=== PATIENT | female | born 1985 | race Caucasian/White ===

== ENCOUNTER 2018-12-19 19:56 | Outpatient (CLI) | payer SELFPAY | END 2018-12-19 19:57 | disposition critical access hospital (66) | LOC: EMS 19:56 | PROVIDERS: ATTEND Surgery | DX: R41.0 Disorientation, unspecified (principal) | CPT/HCPCS: A0425; A0429 ==

== ENCOUNTER 2018-12-19 20:22 | Emergency (ER) | payer SELFPAY ==
[2018-12-19] MEDS ORDERED: diazePAM 5 MG TABLET PO STA (20:36)
--- NOTE | 2018-12-19 20:42 | ED Physician Documentation ---
PD HPI MHE - Stated complaint Stated Complaint: CONFUSION/ANXIETY - Chief complaint Chief Complaint: General - History obtained from History obtained from: Patient - History of Present Illness Primary symptom: Psychosis, Anxiety Timing - onset: Unknown Pain level max: 0 Pain level now: 0 Severity Comments: Moderate Contributing factors: Family, Substance abuse - drugs Similar symptoms before: Diagnosis (Psychiatric problems) - Additional information Additional information: Patient called EMS regarding anxiety. Here gives limited history stating that she feels anxious and is having delusions. She will not give further detail. Review of Systems Unable to obtain: Uncooperative PD PAST MEDICAL HISTORY - Past Medical History Past Medical History: No - Past Surgical History Past Surgical History: No - Allergies Allergies/Adverse Reactions: Allergies Allergy/AdvReac Type Severity Reaction Status Date / Time Unable to Assess Allergy Verified 12/19/18 20:28 - Living Situation Living Situation: reports: Alone Living Arrangement: reports: At home - Social History Does the pt smoke?: No Smoking Status: Never smoker Does the pt drink ETOH?: No Substance Use and Type: Marijuana - Family History Family history: reports: Other (Reviewed and not pertinent) PD ED PE NORMAL - Vitals Vital signs reviewed: Yes - General General: Alert and oriented X 3, No acute distress - HEENT HEENT: PERRL - Neck Neck: Supple, no meningeal sign - Cardiac Cardiac: RRR, No murmur - Respiratory Respiratory: Clear bilaterally - Abdomen Abdomen: Normal bowel sounds, Soft, Non tender, Non distended - Derm Derm: Warm and dry - Extremities Extremities: No deformity - Neuro Neuro: Alert and oriented X 3 - Psych Psych: Other (Blunted affect, tearful ) Results - Vitals Vitals: Vital Signs - 24 hr 12/19/18 12/19/18 12/20/18 20:25 21:14 01:53 Temperature 36.7 C 36.7 C Heart Rate 94 88 88 Respiratory 16 16 18 Rate Blood Pressure 133/89 H 130/90 H 101/66 O2 Saturation 100 100 100 Oxygen O2 Source Room air - EKG (time done) 2026 Rate: Rate (enter#) (89) Rhythm: NSR [place]: Normal Intervals: Normal [place], QRS normal Ischemia: Normal ST segments. No: Q waves, T wave inversion - Labs Labs: Laboratory Tests 12/19/18 12/19/18 12/19/18 21:10 21:16 21:16 WBC 7.4 RBC 4.43 Hgb 13.5 Hct 39.7 MCV 89.6 MCH 30.6 MCHC 34.1 RDW 11.8 L Plt Count 250 MPV 8.5 Neut # (Auto) 4.1 Lymph # (Auto) 2.6 [place] # (Auto) 0.6 Eos # (Auto) 0.0 Baso # (Auto) 0.0 Absolute Nucleated RBC 0.00 Nucleated RBC % 0.1 Sodium 136 Potassium 3.5 Chloride 102 Carbon Dioxide 27 Anion Gap 7.0 BUN 9 Creatinine 0.6 Estimated GFR (MDRD) 117 Glucose 98 Calcium 9.2 Total Bilirubin 0.8 AST 30 ALT 25 Alkaline Phosphatase 37 L Total Protein 7.0 Albumin 4.5 Globulin 2.5 Albumin/Globulin Ratio 1.8 Lipase 22 TSH Urine Color YELLOW Urine Clarity CLEAR Urine pH 6.5 Ur Specific [place] 1.020 Urine Protein TRACE Urine Glucose (UA) NEGATIVE Urine Ketones 15 H Urine Occult Blood NEGATIVE Urine Nitrite NEGATIVE Urine Bilirubin NEGATIVE Urine Urobilinogen 0.2 (NORMAL) Ur Leukocyte Esterase NEGATIVE Ur Microscopic Review NOT INDICATED Urine Culture Comments NOT INDICATED Salicylates < 6.0 Urine Opiates Screen NEGATIVE Ur Oxycodone Screen NEGATIVE Urine Methadone Screen NEGATIVE Ur Propoxyphene Screen NEGATIVE Acetaminophen < 10 L Ur Barbiturates Screen NEGATIVE Ur Tricyclics Screen NEGATIVE Ur Phencyclidine Scrn NEGATIVE Ur Amphetamine Screen POSITIVE H U Methamphetamines Scrn NEGATIVE U Benzodiazepines Scrn NEGATIVE Urine Cocaine Screen NEGATIVE U Cannabinoids Screen POSITIVE H Ethyl Alcohol < 5.0 12/19/18 21:16 WBC RBC Hgb Hct MCV MCH MCHC RDW Plt Count MPV Neut # (Auto) Lymph # (Auto) [place] # (Auto) Eos # (Auto) Baso # (Auto) Absolute Nucleated RBC Nucleated RBC % Sodium Potassium Chloride Carbon Dioxide Anion Gap BUN Creatinine Estimated GFR (MDRD) Glucose Calcium Total Bilirubin AST ALT Alkaline Phosphatase Total Protein Albumin Globulin Albumin/Globulin Ratio Lipase TSH 1.04 Urine Color Urine Clarity Urine pH Ur Specific [place] Urine Protein Urine Glucose (UA) Urine Ketones Urine Occult Blood Urine Nitrite Urine Bilirubin Urine Urobilinogen Ur Leukocyte Esterase Ur Microscopic Review Urine Culture Comments Salicylates Urine Opiates Screen Ur Oxycodone Screen Urine Methadone Screen Ur Propoxyphene Screen Acetaminophen Ur Barbiturates Screen Ur Tricyclics Screen Ur Phencyclidine Scrn Ur Amphetamine Screen U Methamphetamines Scrn U Benzodiazepines Scrn Urine Cocaine Screen U Cannabinoids Screen Ethyl Alcohol PD MEDICAL DECISION MAKING - ED course Complexity details: reviewed results, re-evaluated patient, considered differential, d/w patient, d/w behavioral consultant ED course: 33-year-old female presented with concern for possible psychosis, suicidal or homicidal ideation. Patient evaluated by DCR who also interviewed family members and provided patient with intensive outpatient resources.At time of discharge patient denies any suicidal or homicidal. Patient encouraged to return anytime with worsening symptoms. Departure - Departure Disposition: 01 Home, Self Care Clinical Impression: Delusions Condition: Stable Comments: Follow-up with resources provided. Return with worsening symptoms.
[2018-12-19 21:31] LABS: BASOPHILS % (AUTO) 0.7 %; EOSINOPHILS % (AUTO) 0.6 %; HGB - HEMOGLOBIN 13.5 g/dL (12.0-16.0); LYMPHOCYTES # (AUTO) 2.6 10^3/uL (1.5-3.5); LYMPHOCYTES % (AUTO) 35.2 %; MEAN CORPUSCULAR HEMOGLOBIN 30.6 pg (27.0-31.0); MEAN CORPUSCULAR HGB CONC 34.1 g/dL (32.0-36.0); MEAN CORPUSCULAR VOLUME 89.6 fL (81.0-99.0); MEAN PLATELET VOLUME 8.5 fL (7.9-10.8); MONOCYTES # (AUTO) 0.6 10^3/uL (0.0-1.0); MONOCYTES % (AUTO) 8.3 %; NEUTROPHILS # (AUTO) 4.1 10^3/uL (1.5-6.6); NEUTROPHILS % (AUTO) 55.2 %; PLT - PLATELET COUNT 250 10^3/uL (130-450); RED BLOOD COUNT 4.43 10^6/uL (4.20-5.40); RED CELL DISTRIBUTION WIDTH 11.8 % (12.0-15.0); WHITE BLOOD COUNT 7.4 x10^3/uL (4.8-10.8)
[2018-12-19 21:33] LABS: ACETAMINOPHEN < 10 ug/mL (10-30); ALBUMIN 4.5 g/dL (3.2-5.5); ALBUMIN/GLOBULIN RATIO 1.8 (1.0-2.2); ALKALINE PHOSPHATASE 37 IU/L (42-121); ALT ALANINE AMINOTRANSFERASE 25 IU/L (10-60); AST ASPARTATE AMINOTRANSFERASE 30 IU/L (10-42); BILIRUBIN,TOTAL 0.8 mg/dL (0.2-1.0); BUN - BLOOD UREA NITROGEN 9 mg/dL (6-20); CALCIUM 9.2 mg/dL (8.5-10.3); CARBON DIOXIDE - CO2 27 mmol/L (21-32); CHLORIDE 102 mmol/L (101-111); CREATININE 0.6 mg/dL (0.4-1.0); GFR - MDRD 117 (>89); GLUCOSE 98 mg/dL (70-100); LIPASE 22 U/L (22-51); SALICYLATE < 6.0 mg/dL; SODIUM 136 mmol/L (135-145)
[2018-12-19 21:48] LABS: MUDS CUTOFF CONCENTRATIONS CUTOFF CONC BELOW:
[2018-12-19 21:50] LABS: BILIRUBIN,URINE NEGATIVE (NEGATIVE); GLUCOSE, URINE (UA) NEGATIVE (NEGATIVE); KETONES,URINE (UA) 15 mg/dL (NEGATIVE); LEUKOCYTE ESTERASE, URINE NEGATIVE (NEGATIVE); NITRITE,URINE NEGATIVE (NEGATIVE); OCCULT BLOOD,URINE NEGATIVE (NEGATIVE); PH,URINE 6.5 PH (5.0-7.5); PROTEIN,URINE TRACE mg/dL (NEGATIVE); UROBILINOGEN,URINE 0.2 (NORMAL) E.U./dL (NORMAL)
[2018-12-19 21:52] LABS: CLARITY,URINE CLEAR (CLEAR)
[2018-12-20 01:59] LABS: AMPHETAMINE SCREEN,URINE POSITIVE (NEGATIVE); BENZODIAZEPINES SCREEN, URINE NEGATIVE (NEGATIVE); COCAINE SCREEN URINE NEGATIVE (NEGATIVE); METHADONE SCREEN, URINE NEGATIVE (NEGATIVE); METHAMPHETAMINES SCREEN, URINE NEGATIVE (NEGATIVE); OPIATE SCREEN, URINE NEGATIVE (NEGATIVE); OXYCODONE SCREEN, URINE NEGATIVE (NEGATIVE); PROPOXYPHENE SCREEN, URINE NEGATIVE (NEGATIVE); TRICYCLIC ANTIDEPRESSANT,URINE NEGATIVE (NEGATIVE)
[2018-12-20 04:37] VITALS: BP 124/81
== END 2018-12-20 04:26 | disposition home or self-care (01) ==
LOC: EDUNIT# → ED 20:22
DX: F22 Delusional disorders (principal)
CPT/HCPCS: 36415; 80053; 80306; 80307; 80320; 80329; 81001; 81003; 83690; 84443; 85025; 87086; 93005; 99283; 99284

== ENCOUNTER 2018-12-21 18:16 | Outpatient (CLI) | payer OTHER | END 2018-12-21 18:17 | disposition critical access hospital (66) | LOC: EMS 18:16 | PROVIDERS: ATTEND Surgery | DX: R41.82 Altered mental status, unspecified (principal) | CPT/HCPCS: A0425; A0429 ==

== ENCOUNTER 2018-12-21 18:52 | Emergency (ER) | payer OTHER ==
--- NOTE | 2018-12-21 19:01 | ED Physician Documentation ---
PD HPI CHEST PAIN - Stated complaint Stated Complaint: MHE - TOOK METH - History obtained from History obtained from: Patient, EMS, Police - History of Present Illness Timing - onset: Today (She was smoking methamphetamine. She is a little bit of an obtuse historian and Not very specific on exact course of events but admits to chest pain and heart racing and feeling out of it with an impending sense of doom.) Review of Systems Constitutional: denies: Fever, Chills Throat: denies: Dental pain / toothache, Sore throat Cardiac: denies: Pedal edema, Calf pain Respiratory: denies: Dyspnea, Cough, Hemoptysis PD PAST MEDICAL HISTORY - Past Medical History Past Medical History: Yes - Past Surgical History Past Surgical History: No - Allergies Allergies/Adverse Reactions: Allergies Allergy/AdvReac Type Severity Reaction Status Date / Time No Known Drug Allergies Allergy Verified 12/21/18 18:56 - Social History Does the pt smoke?: No Smoking Status: Never smoker Does the pt drink ETOH?: No PD ED PE NORMAL - Vitals Vital signs reviewed: Yes - General General: Alert and oriented X 3 (Poor eye contact) - HEENT HEENT: PERRL, EOMI - Neck Neck: Supple, no meningeal sign, No bony TTP - Cardiac Cardiac: Other (Tachycardic regular no murmur) - Respiratory Respiratory: No respiratory distress, Clear bilaterally - Abdomen Abdomen: Normal bowel sounds, Soft, Non tender - Back Back: No CVA TTP, No spinal TTP - Derm Derm: Normal color, Warm and dry - Extremities Extremities: No edema, No calf tenderness / cord - Neuro Neuro: Alert and oriented X 3, Normal speech Results - Vitals Vitals: Vital Signs - 24 hr 12/21/18 12/21/18 18:56 19:05 Temperature 36.5 C 36.5 C Heart Rate 114 H 114 H Respiratory 16 16 Rate Blood Pressure 133/91 H 133/91 H O2 Saturation 100 100 Oxygen O2 Source Room air - EKG (time done) 191 Rate: Rate (enter#) (110) Rhythm: Sinus tachycardia [place]: Normal Intervals: Normal ID QRS: Normal Ischemia: Normal ST segments. No: ST elevation c/w ischemia, ST elevation c/w repol, T wave inversion - Labs Labs: Laboratory Tests 12/21/18 12/21/18 12/21/18 19:28 19:28 19:28 WBC 6.7 RBC 4.36 Hgb 13.2 Hct 39.5 MCV 90.5 MCH 30.4 MCHC 33.6 RDW 11.8 L Plt Count 248 MPV 9.0 Neut # (Auto) 4.8 Lymph # (Auto) 1.3 L [place] # (Auto) 0.5 Eos # (Auto) 0.0 Baso # (Auto) 0.1 Absolute Nucleated RBC 0.00 Nucleated RBC % 0.0 Sodium 137 Potassium 4.0 Chloride 103 Carbon Dioxide 26 Anion Gap 8.0 BUN 10 Creatinine 0.6 Estimated GFR (MDRD) 117 Glucose 114 H Calcium 9.3 Total Bilirubin 0.6 AST 23 ALT 22 Alkaline Phosphatase 35 L Total Creatine Kinase 97 CK-MB (CK-2) 1.8 Total Protein 7.0 Albumin 4.4 Globulin 2.6 Albumin/Globulin Ratio 1.7 Lipase 25 Salicylates < 6.0 Acetaminophen < 10 L Ethyl Alcohol < 5.0 PD MEDICAL DECISION MAKING - ED course ED course: This is a 33-year-old woman who presents by ambulance in police custody after using methamphetamine and she feels bad and has chest pain. Her EKG is nonischemic and there is no evidence of rhabdomyolysis or elevated biomarkers. I offered Ativan for anxiolysis which she declined and she only got about half a bag of IV fluids before she ripped the IV out. Spoke with Gracie Ruano shelter nurse practitioner prior to discharge. Departure - Departure Disposition: 01 Home, Self Care Clinical Impression: Methamphetamine abuse Chest pain Qualifiers: Chest pain type: intercostal pain Qualified Code(s): R07.82 - Intercostal pain Condition: Good Record reviewed to determine appropriate education?: Yes Instructions: ED Drug Abuse General
[2018-12-21 19:05] VITALS: BP 133/91
[2018-12-21 19:37] LABS: BASOPHILS # (AUTO) 0.1 10^3/uL (0.0-0.1); BASOPHILS % (AUTO) 0.8 %; EOSINOPHILS % (AUTO) 0.1 %; HGB - HEMOGLOBIN 13.2 g/dL (12.0-16.0); LYMPHOCYTES # (AUTO) 1.3 10^3/uL (1.5-3.5); LYMPHOCYTES % (AUTO) 19.1 %; MEAN CORPUSCULAR HEMOGLOBIN 30.4 pg (27.0-31.0); MEAN CORPUSCULAR HGB CONC 33.6 g/dL (32.0-36.0); MEAN CORPUSCULAR VOLUME 90.5 fL (81.0-99.0); MONOCYTES # (AUTO) 0.5 10^3/uL (0.0-1.0); MONOCYTES % (AUTO) 7.4 %; NEUTROPHILS # (AUTO) 4.8 10^3/uL (1.5-6.6); NEUTROPHILS % (AUTO) 72.6 %; PLT - PLATELET COUNT 248 10^3/uL (130-450); RED BLOOD COUNT 4.36 10^6/uL (4.20-5.40); RED CELL DISTRIBUTION WIDTH 11.8 % (12.0-15.0); WHITE BLOOD COUNT 6.7 x10^3/uL (4.8-10.8)
[2018-12-21] MEDS: SODIUM CHLORIDE 0.9% 1,000 ML IV ONE ×2 (19:37→19:42)
--- NOTE | 2018-12-21 19:39 | XRAY Report ---
Reason: chest pain Procedure Date: 12/21/2018 Accession Number: [id number] / [id number] Procedure: XR - Chest 1 View X-Ray CPT Code: 88016 FULL RESULT: EXAM: CHEST RADIOGRAPHY EXAM DATE: 12/21/2018 07:25 PM. CLINICAL HISTORY: Chest pain. COMPARISON: None. TECHNIQUE: 1 view. FINDINGS: Lungs/Pleura: No focal opacities evident. No pleural effusion. No pneumothorax. Mediastinum: Within exam limitations, the cardiomediastinal contour is normal. Other: None. IMPRESSION: Normal single view chest. RADIA
[2018-12-21 19:54] LABS: ACETAMINOPHEN < 10 ug/mL (10-30); ALBUMIN 4.4 g/dL (3.2-5.5); ALBUMIN/GLOBULIN RATIO 1.7 (1.0-2.2); ALKALINE PHOSPHATASE 35 IU/L (42-121); ALT ALANINE AMINOTRANSFERASE 22 IU/L (10-60); AST ASPARTATE AMINOTRANSFERASE 23 IU/L (10-42); BILIRUBIN,TOTAL 0.6 mg/dL (0.2-1.0); BUN - BLOOD UREA NITROGEN 10 mg/dL (6-20); CALCIUM 9.3 mg/dL (8.5-10.3); CARBON DIOXIDE - CO2 26 mmol/L (21-32); CHLORIDE 103 mmol/L (101-111); CK- CREATINE KINASE 97 IU/L (22-269); CREATININE 0.6 mg/dL (0.4-1.0); GFR - MDRD 117 (>89); GLUCOSE 114 mg/dL (70-100); LIPASE 25 U/L (22-51); SALICYLATE < 6.0 mg/dL; SODIUM 137 mmol/L (135-145)
== END 2018-12-21 21:17 | disposition home or self-care (01) ==
LOC: EDUNIT# → ED 18:52
DX: F15.10 Other stimulant abuse, uncomplicated (principal); R07.82 Intercostal pain; R00.0 Tachycardia, unspecified
CPT/HCPCS: 36415; 71045; 80053; 80307; 80320; 80329; 82550; 82553; 83690; 85025; 93005; 99283

== ENCOUNTER 2020-06-05 08:00 | Outpatient (CLI) | payer MEDICAID ==
[2020-06-05 17:54] LABS: TRICHOMONAS VAGINALIS DNA NEGATIVE (NEGATIVE)
== END 2020-06-05 23:59 | disposition home or self-care (01) ==
LOC: LAB.R 08:00
PROVIDERS: ATTEND Obstetrics & Gynecology
DX: Z11.3 Encounter for screening for infections with a predominantly sexual mode of transmission (principal)
CPT/HCPCS: 87491; 87591; 87661

== ENCOUNTER 2020-06-06 14:39 | Outpatient (CLI) | payer MEDICAID ==
[2020-06-06 15:04] LABS: HGB - HEMOGLOBIN 13.7 g/dL (12.0-16.0); MEAN CORPUSCULAR HEMOGLOBIN 30.9 pg (27.0-31.0); MEAN CORPUSCULAR HGB CONC 33.3 g/dL (32.0-36.0); MEAN CORPUSCULAR VOLUME 92.6 fL (81.0-99.0); MEAN PLATELET VOLUME 10.2 fL (7.9-10.8); RED BLOOD COUNT 4.44 10^6/uL (4.20-5.40); RED CELL DISTRIBUTION WIDTH 11.5 % (12.0-15.0); WHITE BLOOD COUNT 7.5 x10^3/uL (4.8-10.8)
[2020-06-06 15:20] LABS: ALBUMIN 4.6 g/dL (3.2-5.5); ALBUMIN/GLOBULIN RATIO 1.4 (1.0-2.2); ALKALINE PHOSPHATASE 49 IU/L (42-121); ALT ALANINE AMINOTRANSFERASE 15 IU/L (10-60); AST ASPARTATE AMINOTRANSFERASE 15 IU/L (10-42); BILIRUBIN,TOTAL 0.3 mg/dL (0.2-1.0); BUN - BLOOD UREA NITROGEN 16 mg/dL (6-20); CALCIUM 9.4 mg/dL (8.5-10.3); CARBON DIOXIDE - CO2 26 mmol/L (21-32); CHLORIDE 100 mmol/L (101-111); CHOL/HDL RATIO 3.9 (<4.4); CHOLESTEROL 140 mg/dL; CREATININE 0.7 mg/dL (0.4-1.0); GLUCOSE 95 mg/dL (70-100); HDL CHOLESTEROL 36 mg/dL; LDL CHOLESTEROL,CALCULATED 90 mg/dL; LDL/HDL RATIO 2.5 (<4.4); SODIUM 138 mmol/L (135-145); TOTAL PROTEIN 7.9 g/dL (6.7-8.2); VLDL CHOLESTEROL 14 mg/dL
[2020-06-06 15:32] LABS: THYROID STIMULATING HORMONE 1.16 uIU/mL (0.34-5.60)
[2020-06-06 15:52] LABS: HB2 TOTAL 14.4 g/dL; HEMOGLOBIN A1C 0.46 g/dL; HEMOGLOBIN A1C % 5.1 % (4.6-6.2)
[2020-06-07 12:28] LABS: HIV AG/AB 4TH GEN NON-REACTIVE (NON-REACTIVE)
[2020-06-07 14:29] LABS: HEPATITIS A IGM NON-REACTIVE (NON-REACTIVE); HEPATITIS B SURFACE ANTIGEN NON-REACTIVE (NON-REACTIVE); HEPATITIS C ANTIBODY NON-REACTIVE (NON-REACTIVE)
[2020-06-08 11:13] LABS: HSV 1 IGG TYPE SPECIFIC AB 35.1 index; HSV 2 IGG TYPE SPECIFIC AB 2.82 index
== END 2020-06-06 14:40 | disposition home or self-care (01) ==
LOC: LAB 14:39
PROVIDERS: ATTEND Obstetrics & Gynecology
DX: Z00.00 Encounter for general adult medical examination without abnormal findings (principal); Z13.1 Encounter for screening for diabetes mellitus; R53.83 Other fatigue; Z13.220 Encounter for screening for lipoid disorders; Z11.3 Encounter for screening for infections with a predominantly sexual mode of transmission
CPT/HCPCS: 36415; 80053; 80061; 80074; 81599; 83036; 83721; 84439; 84443; 85027; 86592; 86695; 86696; 87389

== ENCOUNTER 2020-11-21 11:12 | Emergency (ER) | payer MEDICAID ==
[2020-11-21 11:18] VITALS: BP 110/60
[2020-11-21] MEDS ORDERED: SODIUM CHLORIDE 0.9% 1,000 ML IV STA (11:25)
[2020-11-21 11:39] LABS: BILIRUBIN,URINE NEGATIVE (NEGATIVE); GLUCOSE, URINE (UA) NEGATIVE (NEGATIVE); KETONES,URINE (UA) NEGATIVE (NEGATIVE); LEUKOCYTE ESTERASE, URINE NEGATIVE (NEGATIVE); NITRITE,URINE NEGATIVE (NEGATIVE); OCCULT BLOOD,URINE NEGATIVE (NEGATIVE); PH,URINE 6.5 PH (5.0-7.5); PROTEIN,URINE NEGATIVE (NEGATIVE); UROBILINOGEN,URINE 0.2 (NORMAL) E.U./dL (NORMAL)
[2020-11-21 11:41] LABS: CLARITY,URINE CLEAR (CLEAR)
[2020-11-21 12:06] LABS: CALCIUM 9.3 mg/dL (8.5-10.3); CREATININE 0.5 mg/dL (0.4-1.0); MAGNESIUM 1.9 mg/dL (1.7-2.8)
[2020-11-21] MEDS ORDERED: ONDANSETRON 4 MG/2 ML VIAL IVP STA (12:07)
--- NOTE | 2020-11-21 12:10 | ED Physician Documentation ---
History of Present Illness - Stated complaint Stated Complaint: NAUSEA - Chief complaint Chief Complaint: Abd Pain - History obtained from History obtained from: Patient - Additonal information Additional information: Patient comes emergency department for chief complaint of nausea. Patient states she is 6 to 7 weeks and has been having nausea for the last few weeks. However, she has noticed that over the last 24 hours, her nausea seems to be a lot worse. Patient states that she has not had any other symptoms such as diarrhea or dysuria. She denies any measured fever, though she does note she has had a slight sense of hot and cold flashes. No vaginal bleeding or other problems with the so far. No abdominal pain. The patient has her first OB appointment coming up in a little less than a week. Patient denies any other complaints at this time. She states her nausea is doing a little better. She does not have any antiemetics at home. Review of Systems Ten Systems: 10 systems reviewed and negative Constitutional: denies: Chills Eyes: reports: Reviewed and negative Ears: reports: Reviewed and negative Nose: reports: Reviewed and negative Throat: reports: Reviewed and negative Cardiac: reports: Reviewed and negative Respiratory: reports: Reviewed and negative GI: reports: Nausea, Vomiting. denies: Abdominal Pain, Diarrhea : reports: Reviewed and negative. denies: Dysuria Skin: reports: Reviewed and negative Musculoskeletal: reports: Reviewed and negative. denies: Back pain Neurologic: reports: Reviewed and negative Psychiatric: reports: Reviewed and negative Endocrine: reports: Reviewed and negative Immunocompromised: reports: Reviewed and negative PD PAST MEDICAL HISTORY - Past Surgical History Past Surgical History: No - Present Medications Home Medications: Ambulatory Orders Medication Instructions Recorded Confirmed Ondansetron Odt [Zofran] 4 mg TL Q6H PRN #30 tablet 11/21/20 - Allergies Allergies/Adverse Reactions: Allergies Allergy/AdvReac Type Severity Reaction Status Date / Time No Known Drug Allergies Allergy Verified 11/21/20 11:16 - Social History Does the pt smoke?: No Smoking Status: Never smoker Does the pt drink ETOH?: No Does the pt have substance abuse?: No PD ED PE NORMAL - Vitals Vital signs reviewed: Yes - General General: Alert and oriented X 3, No acute distress, Well developed/nourished - HEENT HEENT: Atraumatic, PERRL, EOMI, Moist mucous membranes - Neck Neck: Supple, no meningeal sign - Cardiac Cardiac: RRR, No murmur - Respiratory Respiratory: No respiratory distress, Clear bilaterally - Abdomen Abdomen: Soft, Non tender, Non distended - Derm Derm: Normal color, Warm and dry, No rash - Extremities Extremities: No deformity, No edema, No calf tenderness / cord - Neuro Neuro: Alert and oriented X 3, water project engineer 2-12 intact, No motor deficit, No sensory deficit, Normal speech - Psych Psych: Normal mood, Normal affect Results - Vitals Vitals: Vital Signs - 24 hr 11/21/20 11:16 Temperature 37.0 C Heart Rate 60 Respiratory 19 Rate Blood Pressure 110/60 O2 Saturation 100 Oxygen O2 Source Room air - Labs Labs: Laboratory Tests 11/21/20 11/21/20 11:32 11:40 Sodium 135 Potassium 3.6 Chloride 100 L Carbon Dioxide 24 Anion Gap 11.0 BUN 7 Creatinine 0.5 Estimated GFR (MDRD) 142 Glucose 101 H Calcium 9.3 Magnesium 1.9 Urine Color YELLOW Urine Clarity CLEAR Urine pH 6.5 Ur Specific [place] 1.015 Urine Protein NEGATIVE Urine Glucose (UA) NEGATIVE Urine Ketones NEGATIVE Urine Occult Blood NEGATIVE Urine Nitrite NEGATIVE Urine Bilirubin NEGATIVE Urine Urobilinogen 0.2 (NORMAL) Ur Leukocyte Esterase NEGATIVE Ur Microscopic Review NOT INDICATED Urine Culture Comments NOT INDICATED PD MEDICAL DECISION MAKING - ED course Complexity details: reviewed results, re-evaluated patient, considered differential, d/w patient ED course: Patient was generally well-appearing and urinalysis was negative. I discussed with the patient that she is at the point in her when nausea tends to become more pronounced. However, it is also possible that she has a viral illness which has caused her to have an uptake and nausea. Either way, the management is symptomatic. I discussed with her that if she does have a viral illness, that this will be self-limited. We have discussed nausea treatment at home, and I will give her some oral dissolving Zofran. We have also discussed clear liquid diet. Patient has received a liter of point and normal saline in the emergency department as well as IV Zofran and is feeling better. Departure - Departure Disposition: 01 Home, Self Care Clinical Impression: Vomiting Qualifiers: Vomiting type: bilious vomiting Nausea presence: with nausea Qualified Code(s): R11.14 - Bilious vomiting Qualifiers: Weeks of gestation: less than 8 weeks Qualified Code(s): Z3A.01 - Less than 8 weeks gestation of Condition: Stable Instructions: ED Diet Vomiting Diarrhea, ED Preg Morning Sickness Prescriptions: Ondansetron Odt [Zofran] 4 mg TL Q6H PRN #30 tablet PRN Reason: Nausea / Vomiting Discharge Date/Time: 11/21/20 12:35
== END 2020-11-21 12:35 | disposition home or self-care (01) ==
LOC: ED 11:12
DX: O26.891 Other specified pregnancy related conditions, first trimester (principal); R11.14 Bilious vomiting; Z3A.01 Less than 8 weeks gestation of pregnancy
CPT/HCPCS: 36415; 80048; 81001; 81003; 83735; 87086; 96361; 96374; 99284

== ENCOUNTER 2020-11-25 08:00 | Outpatient (CLI) | payer MEDICAID ==
[2020-11-25 17:20] LABS: MUDS CUTOFF CONCENTRATIONS CUTOFF CONC BELOW:
[2020-11-25 17:37] LABS: BILIRUBIN,URINE NEGATIVE (NEGATIVE); CLARITY,URINE SL. CLOUDY (CLEAR); GLUCOSE, URINE (UA) NEGATIVE (NEGATIVE); KETONES,URINE (UA) NEGATIVE (NEGATIVE); LEUKOCYTE ESTERASE, URINE NEGATIVE (NEGATIVE); NITRITE,URINE NEGATIVE (NEGATIVE); OCCULT BLOOD,URINE NEGATIVE (NEGATIVE); PROTEIN,URINE NEGATIVE (NEGATIVE); UROBILINOGEN,URINE 0.2 (NORMAL) E.U./dL (NORMAL)
[2020-11-25 17:55] LABS: AMPHETAMINE SCREEN,URINE NEGATIVE (NEGATIVE); BENZODIAZEPINES SCREEN, URINE NEGATIVE (NEGATIVE); COCAINE SCREEN URINE NEGATIVE (NEGATIVE); METHADONE SCREEN, URINE NEGATIVE (NEGATIVE); METHAMPHETAMINES SCREEN, URINE NEGATIVE (NEGATIVE); OPIATE SCREEN, URINE NEGATIVE (NEGATIVE); OXYCODONE SCREEN, URINE NEGATIVE (NEGATIVE); PROPOXYPHENE SCREEN, URINE NEGATIVE (NEGATIVE); TRICYCLIC ANTIDEPRESSANT,URINE NEGATIVE (NEGATIVE)
[2020-11-25 18:07] LABS: RBC,URINE 0-5 /HPF (0-5); SQUAMOUS EPITHELIAL CELL,UR FEW Squamous (<= Few)
[2020-11-25 18:08] LABS: BACTERIA,URINE Few /HPF (None Seen); CRYSTALS,URINE 11-25 Ca Oxalate /LPF
== END 2020-11-25 23:59 | disposition home or self-care (01) ==
LOC: LAB.R 08:00
PROVIDERS: ATTEND Obstetrics & Gynecology
DX: Z34.90 Encounter for supervision of normal pregnancy, unspecified, unspecified trimester (principal)
CPT/HCPCS: 80306; 81001; 87086

== ENCOUNTER 2020-12-04 15:29 | Outpatient (CLI) | payer MEDICAID ==
--- NOTE | 2020-12-04 17:05 | Ultrasound Report ---
PROCEDURE: OB First Trimester w/TV INDICATIONS: SUPERVISION OF NORMAL OUTSIDE/PRIOR DATING DATA: Last menstrual period (LMP): 10/04/2020. LMP-based estimated date of delivery (SONIDO): 07/11/2021. First dating scan (date and location): 12/04/2020 at [facility]. Estimated date of delivery (SONIDO) from first dating scan: 07/06/2021. TECHNIQUE: Real-time scanning was performed of the fetus and maternal pelvic organs, with image documentation. Endovaginal scanning was also performed to better visualize the fetus and maternal ovaries. COMPARISON: None. FINDINGS: Embryo: There is a single living IUP with heart rate 169 BPM. The estimated gestational ages 9 weeks 3 days based on crown-rump length. No perinephric gestational age. Cervix is closed. Measurement variability in dating: +/- 4 weeks by LMP, +/- 7 days by mean sac diameter (use before 6 weeks gestation if crown-rump length not able to be measured), +/- 5 days by crown-rump length (6-12 weeks gestation). Maternal organs: There is a corpus largest cyst in the right ovary measuring 2.5 cm. Left ovary is no t well seen. IMPRESSION: 1. A single living IUP with the estimated gestational age 9 weeks 3 days corresponding to ultrasound SONIDO 07/06/2021. Reviewed by: Waldo Rodriguez MD on 12/04/2020 5:03 PM PST Approved by: Waldo Rodriguez MD on 12/04/2020 5:03 PM PST Station ID: [id number]
== END 2020-12-04 15:30 | disposition home or self-care (01) ==
LOC: DI 15:29
PROVIDERS: ATTEND Obstetrics & Gynecology
DX: Z34.90 Encounter for supervision of normal pregnancy, unspecified, unspecified trimester (principal)

== ENCOUNTER 2020-12-18 07:00 | Outpatient (CLI) | payer MEDICAID ==
[2020-12-18 21:21] LABS: TRICHOMONAS VAGINALIS DNA NEGATIVE (NEGATIVE)
== END 2020-12-18 23:59 | disposition home or self-care (01) ==
LOC: LAB.R 07:00
PROVIDERS: ATTEND Obstetrics & Gynecology
DX: Z11.3 Encounter for screening for infections with a predominantly sexual mode of transmission (principal)
CPT/HCPCS: 87491; 87591; 87661

== ENCOUNTER 2020-12-23 08:00 | Outpatient (CLI) | payer MEDICAID ==
[2020-12-23 18:06] LABS: EOSINOPHILS # (AUTO) 0.1 10^3/uL (0.0-0.7); EOSINOPHILS % (AUTO) 1.2 %; HCT - HEMATOCRIT 36.7 % (37.0-47.0); HGB - HEMOGLOBIN 12.1 g/dL (12.0-16.0); LYMPHOCYTES # (AUTO) 1.4 10^3/uL (1.5-3.5); LYMPHOCYTES % (AUTO) 24.2 %; MEAN CORPUSCULAR HEMOGLOBIN 31.1 pg (27.0-31.0); MEAN CORPUSCULAR VOLUME 94.3 fL (81.0-99.0); MEAN PLATELET VOLUME 10.7 fL (7.9-10.8); MONOCYTES # (AUTO) 0.4 10^3/uL (0.0-1.0); MONOCYTES % (AUTO) 6.3 %; NEUTROPHILS # (AUTO) 3.9 10^3/uL (1.5-6.6); PLT - PLATELET COUNT 220 10^3/uL (130-450); RED BLOOD COUNT 3.89 10^6/uL (4.20-5.40); RED CELL DISTRIBUTION WIDTH 11.6 % (12.0-15.0); WHITE BLOOD COUNT 5.8 x10^3/uL (4.8-10.8)
[2020-12-24 08:31] LABS: HIV AG/AB 4TH GEN NON-REACTIVE (NON-REACTIVE)
[2020-12-24 12:58] LABS: HEPATITIS B SURFACE ANTIGEN NON-REACTIVE (NON-REACTIVE)
[2020-12-24 12:59] LABS: HEPATITIS C ANTIBODY NON-REACTIVE (NON-REACTIVE)
== END 2020-12-23 23:59 | disposition home or self-care (01) ==
LOC: LAB.WCP 08:00
PROVIDERS: ATTEND Obstetrics & Gynecology
DX: Z34.90 Encounter for supervision of normal pregnancy, unspecified, unspecified trimester (principal); Z36.89 Encounter for other specified antenatal screening
CPT/HCPCS: 36415; 81220; 81243; 81329; 81599; 85025; 86592; 86593; 86762; 86780; 86787; 86803; 86850; 86900; 86901; 87340; 87389

== ENCOUNTER 2021-02-18 09:51 | Outpatient (CLI) | payer MEDICAID ==
--- NOTE | 2021-02-18 19:17 | Ultrasound Report ---
PROCEDURE: OB Detailed Eval INDICATIONS: SCREENING, SUPER OF NORMAL OUTSIDE/PRIOR DATING DATA: Last menstrual period (LMP): 10/04/2020. LMP-based estimated date of delivery (SONIDO): 07/11/2021. First dating scan (date and location): To 1021. Estimated date of delivery (SONIDO) from first dating scan: 07/06/2021. This date was used for the ultra sound data generated below. TECHNIQUE: Real-time scanning was performed of the fetus, with image documentation and biometric measurements. COMPARISON: OB ultrasound 12/04/2019 FINDINGS: General: A single living intrauterine gestation is present. Presentation: Breech Placenta: Placental position is posterior, without previa. Amniotic fluid index: 15.8 cm cm, 65th percentile for gestational age. heart rate: 135 beats per minute. Maternal cervical canal: 3.8 cm long; normal length is 2.5 cm or more. biometrics: Biparietal diameter: 4.5 cm 19 weeks 5 days Head circumference: 17.1 cm 19 weeks 5 days Abdominal circumference: 15.3 cm 20 weeks 2 days Femur length: 3.0 cm 19 weeks 2 days Estimated gestational age from initial scan: 20 weeks 2 days Composite gestational age from present scan: 19 weeks 5 days Estimated weight and percentile: 313 g 21st percentile Measurement variability in biometric dating: +/- 10 days from 12-20 weeks gestation, +/- 2 weeks from 20-30 weeks gestation, +/- 3 weeks at 30 weeks gestation or later. Anatomic survey: Neuro: Ventricles are normal at less than 10 mm. Cisterna magna is normal at 3-11 mm. Cerebellum i s normal in size and morphology. Nuchal skin fold: Normal at less than 6 mm between 14 and 20 weeks gestational age. Face: Nose and lips, facial profile are normal. Spine: No evidence for spina bifida. Heart: 4-chambered heart is present, with normal ventricular outflow tracts. Diaphragm: Diaphragm is intact. Stomach: Left-sided stomach is present. Kidneys: No hydronephrosis. Normal is less than 5 mm in 2nd trimester, less than 7 mm in 3rd trimester. Cord: 3 vessel cord has orthotopic insertion. Bladder: Normal in size. Extremities: All 4 extremities are visualized. IMPRESSION: Single live intrauterine with ultrasound gestational age today of 19 weeks 5 days compared to 20 weeks 2 days from initial ultrasound. Anatomy is within normal limits. Reviewed by: Pilar Farah MD on 02/18/2021 6:16 PM DEANNA Approved by: Pilar Farah MD on 02/18/2021 6:16 PM AKDESIRE Station ID: [id number]
== END 2021-02-18 09:52 | disposition home or self-care (01) ==
LOC: DI 09:51
PROVIDERS: ATTEND Obstetrics & Gynecology
DX: Z34.90 Encounter for supervision of normal pregnancy, unspecified, unspecified trimester (principal); Z36.89 Encounter for other specified antenatal screening

== ENCOUNTER 2021-04-01 08:00 | Outpatient (CLI) | payer MEDICAID ==
[2021-04-01 18:12] LABS: HGB - HEMOGLOBIN 10.5 g/dL (12.0-16.0); MEAN CORPUSCULAR HEMOGLOBIN 30.3 pg (27.0-31.0); MEAN CORPUSCULAR HGB CONC 32.8 g/dL (32.0-36.0); MEAN CORPUSCULAR VOLUME 92.5 fL (81.0-99.0); MEAN PLATELET VOLUME 10.8 fL (7.9-10.8); RED BLOOD COUNT 3.46 10^6/uL (4.20-5.40); RED CELL DISTRIBUTION WIDTH 11.6 % (12.0-15.0)
== END 2021-04-01 23:59 | disposition home or self-care (01) ==
LOC: LAB.WCP 08:00
PROVIDERS: ATTEND Obstetrics & Gynecology
DX: Z34.90 Encounter for supervision of normal pregnancy, unspecified, unspecified trimester (principal); Z36.89 Encounter for other specified antenatal screening
CPT/HCPCS: 36415; 82950; 85027

== ENCOUNTER 2021-04-16 09:45 | Outpatient (CLI) | payer MEDICAID ==
[2021-04-16 10:24] LABS: GTT GLUCOSE,FASTING 87 mg/dL (70-100)
== END 2021-04-16 09:46 | disposition home or self-care (01) ==
LOC: LAB 09:45
PROVIDERS: ATTEND Obstetrics & Gynecology
DX: O99.810 Abnormal glucose complicating pregnancy (principal)
CPT/HCPCS: 36415; 82951; 82952

== ENCOUNTER 2021-05-14 13:20 | Outpatient (CLI) | payer MEDICAID ==
[2021-05-14 13:41] VITALS: BP 111/61
--- NOTE | 2021-05-14 14:49 | PROVIDER PROGRESS NOTE ---
- HPI Chief Complaint: Decreased movement (Patient is 35yo at 32 3/7 WBD with decreased movmenent. Patient denies contractions, SROM or Vaginal bleeding. Patient has been feeling tired since receiving her COVD-19 first dose on Wednesday. Patient is feeling a lot more movement since arriving at [facility].) Current : Current EDU 07/06/21 Gestation 32 Weeks and 3 Days 2 Para 0 Vital Signs Temperature 97.9 F 05/14/21 13:34 Heart Rate 75 05/14/21 13:34 Respiratory Rate 16 05/14/21 13:34 Blood Pressure 111/61 05/14/21 13:34 O2 Saturation 99 05/14/21 13:34 Temperature 97.9 F 05/14/21 13:34 Heart Rate 75 05/14/21 13:34 Respiratory Rate 16 05/14/21 13:34 Blood Pressure 111/61 05/14/21 13:34 O2 Saturation 99 05/14/21 13:34 - Exam General: Patient is reseting comfortably and is not in and distress. Chest: Clear to auscultation. Good breath sounds in all cespedes. Heart: RRR without murmur or gallop. Abdomen: Soft, non-tender to palpation. Gravid. Extremities: No pedal or pre-tibial edema. Neuro: Alert and Oriented times 3. Normal affect. DTR's +2/+4 NST: Baseline 125 BPM. Moderate variability. Accelerations 15X15 present. No decelerations. Category I monitor strip and Reactive NST. - Procedures OB Procedure Performed: NST Diagnosis/Indication for NST: Decreased movement NST Procedure: NST Procedure Start Date 05/14/21 Start Time 13:30 Stop Time 14:00 Vibroacoustic Stimulation Used No Patient States Movement No Patient felt a lot more movement while here on Labor and Delivery. Baseline 125 with moderate variability, accelerations present. No decelerations present. 15X15 Accelerations. Reactive and Category I NST. - Plan Plan: A- IUP 32 3/7, Decreased movement resolved. P- Discharge to home. Discussed when to call and come back in. Follow-up with Dr. Pereira next week as scheduled.
== END 2021-05-14 14:30 | disposition home or self-care (01) ==
LOC: WFO 13:20 → FBP 13:21 → WFO 14:30
PROVIDERS: ATTEND Obstetrics & Gynecology
DX: O36.8130 Decreased fetal movements, third trimester, not applicable or unspecified (principal); Z3A.32 32 weeks gestation of pregnancy
CPT/HCPCS: 59025; 99214

== ENCOUNTER 2021-06-11 08:00 | Outpatient (CLI) | payer MEDICAID | END 2021-06-11 23:59 | disposition home or self-care (01) | LOC: LAB.R 08:00 | PROVIDERS: ATTEND Obstetrics & Gynecology | DX: Z34.90 Encounter for supervision of normal pregnancy, unspecified, unspecified trimester (principal) | CPT/HCPCS: 87797 ==

== ENCOUNTER 2021-06-24 13:35 | Outpatient (CLI) | payer MEDICAID | END 2021-06-24 13:36 | disposition home or self-care (01) | LOC: COV 13:35 | PROVIDERS: ATTEND Obstetrics & Gynecology | DX: M79.10 Myalgia, unspecified site (principal); R53.83 Other fatigue; R09.81 Nasal congestion; J34.89 Other specified disorders of nose and nasal sinuses; R11.2 Nausea with vomiting, unspecified; Z20.822 Contact with and (suspected) exposure to COVID-19 ==

== ENCOUNTER 2021-07-05 | Outpatient (CLI) | payer MEDICAID ==
[2021-07-05 00:20] VITALS: BP 122/74
[2021-07-05 01:15] LABS: RUPTURE OF MEMBRANES PLUS NEGATIVE (NEGATIVE)
== END 2021-07-05 02:00 | disposition home or self-care (01) ==
LOC: WFO → FBP 00:02 → WFO 02:00
PROVIDERS: ATTEND Obstetrics & Gynecology
DX: O47.1 False labor at or after 37 completed weeks of gestation (principal); Z3A.39 39 weeks gestation of pregnancy
CPT/HCPCS: 84112; 99213

== ENCOUNTER 2021-07-05 14:19 | Inpatient (IN) | payer MEDICAID ==
[2021-07-05] MEDS ORDERED: MORPHINE 10 MG/ML VIAL IM STA (14:58)
[2021-07-05] MEDS ORDERED: PROMETHAZINE 25 MG/1 ML VIAL IM STA (14:59)
--- NOTE | 2021-07-05 16:36 | PROCEDURE REPORT ---
- HPI Diagnosis/Indication for NST: Other (Contractions, Rule out Labor) Current EDU 07/06/21 Gestation 39 Weeks and 6 Days 2 Para 0 Vital Signs Temperature 98.8 F 07/05/21 15:29 Heart Rate 93 07/05/21 15:29 Respiratory Rate 18 07/05/21 15:29 Blood Pressure 134/76 H 07/05/21 15:29 O2 Saturation 99 07/05/21 15:29 Temperature 98.8 F 07/05/21 15:29 Heart Rate 93 07/05/21 15:29 Respiratory Rate 18 07/05/21 15:29 Blood Pressure 134/76 H 07/05/21 15:29 O2 Saturation 99 07/05/21 15:29 - NST Procedure NST Procedure Start Date 07/05/21 Start Time 14:27 Stop Time 15:00 Vibroacoustic Stimulation Used No Patient States Movement Yes 35 yo G1 PO at 39 6/7 with contractions. Patient has been feeling contractions since last night. NST: 130 heart tones baseline. Moderate variability and Accelerations 15X15. No decelerations. Contractions every 6 minutes. Reactive NST, Category I Monitor strip. A-IUP 39 6/7 with Contractions and not coping well with pain. P- Patient given Morphine 10mg IM with Phenergan 25mg IM for theraputic rest.
--- NOTE | 2021-07-05 16:43 | PROCEDURE REPORT ---
- HPI Diagnosis/Indication for NST: Other (Contractions at 12:30am on 07/05/21/) Current EDU 07/06/21 Gestation 39 Weeks and 6 Days 2 Para 0 Vital Signs Temperature 98.8 F 07/05/21 15:29 Heart Rate 93 07/05/21 15:29 Respiratory Rate 18 07/05/21 15:29 Blood Pressure 134/76 H 07/05/21 15:29 O2 Saturation 99 07/05/21 15:29 Temperature 98.8 F 07/05/21 15:29 Heart Rate 93 07/05/21 15:29 Respiratory Rate 18 07/05/21 15:29 Blood Pressure 134/76 H 07/05/21 15:29 O2 Saturation 99 07/05/21 15:29 - NST Procedure NST Procedure Start Date 07/05/21 Start Time 01:00 Stop Time 01:30 Vibroacoustic Stimulation Used No Patient States Movement Yes Patient presented complaining of Contractions and Possible SROM. Patient had ROM+ that was negative. Patient reports good movement. Patient was feeling contractions every 6 minutes. Patient denies vaginal bleeding. NST: FHT's baseline was 115bpm. Moderate variability and Accelerations of 15X15 were present. No decelerations. Irregular contractions. A-IUP 39 6/7 Latent labor, Possible ROM, Membranes intact. P- Discharge to home with Labor Precautions.
[2021-07-05] MEDS ORDERED: ONDANSETRON 4 MG/2 ML VIAL IVP PRN ×2 (18:14→21:13)
[2021-07-05] MEDS ORDERED: OXYTOCIN 10 UNIT/ML VIAL IM PRN (18:14)
[2021-07-05] MEDS ORDERED: OXYTOCIN/SODIUM CHLORIDE 500 ML IV PRN (18:14)
[2021-07-05] MEDS ORDERED: SODIUM CHLORIDE FLUSH 0.9% 10 ML SYRINGE IVP PRN (18:14)
[2021-07-05] MEDS ORDERED: METHYLERGONOVINE 0.2 MG/ML VIAL IM PRN (18:14)
[2021-07-05] MEDS ORDERED: TRANEXAMIC ACID IN NACL 1,000 MG/100 ML BAG IV PRN (18:14)
[2021-07-05] MEDS ORDERED: LIDOCAINE-MPF 1% 30 ML VIAL ID PRN (18:14)
[2021-07-05] MEDS ORDERED: CARBOPROST TROMETHAMINE 250 MCG/ML AMP IM PRN (18:14)
[2021-07-05] MEDS ORDERED: miSOPROStoL 200 MCG TABLET BC PRN (18:14)
[2021-07-05 18:49] LABS: BASOPHILS % (AUTO) 0.2 %; EOSINOPHILS % (AUTO) 0.1 %; HCT - HEMATOCRIT 34.1 % (37.0-47.0); HGB - HEMOGLOBIN 11.4 g/dL (12.0-16.0); LYMPHOCYTES # (AUTO) 1.2 10^3/uL (1.5-3.5); LYMPHOCYTES % (AUTO) 7.1 %; MEAN CORPUSCULAR HEMOGLOBIN 30.4 pg (27.0-31.0); MEAN CORPUSCULAR HGB CONC 33.4 g/dL (32.0-36.0); MEAN CORPUSCULAR VOLUME 90.9 fL (81.0-99.0); MEAN PLATELET VOLUME 11.1 fL (7.9-10.8); MONOCYTES # (AUTO) 0.7 10^3/uL (0.0-1.0); MONOCYTES % (AUTO) 4.1 %; NEUTROPHILS # (AUTO) 14.2 10^3/uL (1.5-6.6); NEUTROPHILS % (AUTO) 87.9 %; PLT - PLATELET COUNT 239 10^3/uL (130-450); RED BLOOD COUNT 3.75 10^6/uL (4.20-5.40); RED CELL DISTRIBUTION WIDTH 13.1 % (12.0-15.0); WHITE BLOOD COUNT 16.2 x10^3/uL (4.8-10.8)
[2021-07-05] MEDS: LACTATED RINGERS 1,000 ML IV SCH (19:38)
[2021-07-05] MEDS ORDERED: ROPIVACAINE 0.2% 200 MG/100 ML BAG EP ONE (20:07)
[2021-07-05] MEDS ORDERED: diphenhydrAMINE INJ 50 MG/ML VIAL IVP PRN (21:13)
[2021-07-05] MEDS ORDERED: NALOXONE 0.4 MG/ML VIAL IVP PRN (21:13)
[2021-07-05] MEDS ORDERED: ROPIVACAINE 0.2% 200 MG/100 ML BAG EP PRN (21:13)
[2021-07-05] MEDS ORDERED: ePHEDrine 50 MG/ML VIAL IVP PRN (21:13)
[2021-07-05] MEDS ORDERED: METOCLOPRAMIDE 10 MG/2 ML VIAL IVP PRN (21:13)
[2021-07-05] MEDS ORDERED: NALBUPHINE 10 MG/ML AMP IVP PRN (21:13)
--- NOTE | 2021-07-05 21:13 | ANESTHESIA PROCEDURE NOTE ---
Anesthesia Epidural Template - Patient Report Patient Reports: positive: Pain controlled - Plan Plan: positive: Continue current management
--- NOTE | 2021-07-05 21:14 | HISTORY & PHYSICAL EXAMINATION ---
Admit History - Visit Reason Visit Reason: Contractions - : 2 Parity: 0 Premature: 0 Ectopic: 0 : 0 Care: positive: Other ([facility]) Risk/History: positive: Genital herpes Smoking Status: Former smoker - Mother's Labs Mother's Blood Type: positive: O Mother's RH: positive: Positive GBS: positive: Group B Step Negative Rubella Status: positive: Equivocal Meds/Allgy - Home Medications Home Medications: Ambulatory Orders Medication Instructions Recorded Confirmed Ondansetron Odt [Zofran] 4 mg TL Q6H PRN #30 tablet 11/21/20 - Allergies Allergies/Adverse Reactions: Allergies Allergy/AdvReac Type Severity Reaction Status Date / Time No Known Drug Allergies Allergy Verified 11/21/20 11:16 Review of Systems - Constitutional Constitutional: reports: Fatigue - Cardiovascular Cariovascular: denies: Irregular heart rate, Palpitations, Chest pain - Respiratory Respiratory: denies: Cough, Sputum production - Gastrointestinal Gastrointestinal: denies: Abdominal pain - Genitourinary Genitourinary: denies: Dysuria, Frequency, Urgency - Integumentary Integumentary: denies: Rash - Neurological Neurological: denies: General weakness Physical - Abdominal Exam Vital Signs: Temp Pulse Resp BP Pulse Ox 99.1 F 103 H 20 127/69 99 07/05/21 20:32 07/05/21 20:32 07/05/21 20:32 07/05/21 20:32 07/05/21 15:29 Contraction Frequency (min/apart): Patient was rahel every 6 minutes. Contraction Intensity: positive: Moderate Uterine Resting Tone: positive: Soft - Monitoring Heart Rate Baseline: 130 Strip Review: positive: Category I - Presentation Presentation: positive: Vertex - Vaginal Exam Membranes: positive: Membranes intact Dilation (in cm): 5 Effacement (%): 100 Station: positive: -1 Cervical Position: positive: Midposition - Other Notes Labor Progress Note/Additional Text: 35yo at 39 4/7 presented to Labor and Delivery with painful contractions. Patient was checked at 0100 am. Patient did not sleep all day and was exhausted. She had theraputic sleep. Patient progressed from 3cm to 5cm. Plan for Labor - Plan For Labor I expect patient to be DC'd or transferred within 96 hours.: Yes Plan for Labor: A-IUP 39 01/29, Active labor. P- Epidrual. Anticipate . Admit with routine labor orders.
--- NOTE | 2021-07-05 21:40 | PROVIDER PROGRESS NOTE ---
Labor Progress Note - Uterine Monitoring Contraction Frequency (min/apart): 4-6 Contraction Intensity: positive: Moderate to strong Uterine Resting Tone: positive: Soft - Monitoring Monitor Mode: positive: External ultrasound Heart Rate Baseline: 130 Heart Rate Variability: positive: Moderate (6-25 bmp) Accelerations: positive: Present, 15x15 Decelerations: positive: Variable, Intermittent (<50% x20 min) Strip Review: positive: Category I - Vaginal Exam Dilation (in cm): 7 Effacement (%): 100 Station: -1 Cervical Position: Anterior (Patient is comfortable with Epidural. RN placing arredondo)
[2021-07-06] MEDS ORDERED: SODIUM CHLORIDE FLUSH 0.9% 10 ML SYRINGE IVP SCH (01:00)
[2021-07-06] MEDS: LACTATED RINGERS 1,000 ML IV SCH (03:26)
--- NOTE | 2021-07-06 07:03 | DELIVERY NOTE ---
Delivery Note - Labor Labor: positive: Spontaneous - Delivery Method Delivery Method: positive: Spontaneous vaginal delivery - Presentation Presentation: positive: Vertex - Nuchal Cord Nuchal Cord: positive: None - Anesthetic Anesthetic Type: - Amniotic Fluid Description Amniotic Fluid Description: positive: Clear - Episiotomy Type Episiotomy Type: positive: None - Laceration Laceration: positive: Periurethral (Bilateral Periurethral lacerations. Right side extended to right vaginal sidewall. Left went to vulvar skin.) - Suture Suture Size: positive: 2-0, 3-0 - Delivery Outcome Delivery Outcome: positive: Livebirth - Spalding: positive: Placed in direct skin contact with mother Spalding sex: positive: Female - Cord Cord: positive: 3 vessels - Placenta Placenta: positive: Intact, Spontaneous - Estimated Blood Loss Estimated Blood Loss (in cc): 350 - Post Delivery Events Post Delivery Events: positive: No post delivery events - Delivery Comments (Free Text/Narrative) Delivery Comments (Free Text/Narrative): 35yo at 39 4/7 weeks presented with contractions. Patient had not slept in more than 24 hours and was exhausted. Patient had theraputic sleep and re- examination of cervix displayed progress from 3cm to 5cm. Patient was rahel every 4-6 minutes. Patient progressed in labor and Epidural anesthesia was placed. Patient had AROM with clear fluid to assist labor progression. Patient progressed in normal fashion to complete and labored down so she could rest. Patient started pushing at 5:33am. Second stage of labor was one hour and 5 minutes. Patient pushed head to 3+ station. Patient had over intact perineum. Head delivered slowly and controlled in HENRIQUE position. No nuchal cord. Maternal forces delivered anterior shoulder and remainder of body delivered spontaneously. Living female with Apgars of 8/9. Delayed cord clamping was performed. Pitocin was started in IV. Cord was clamped times two and cut by father of baby. 6 inch cord segment was obtained for cordstat. Cord blood obtained for lab. Placenta delivered spontaneously, intact, CARINA present. Cervix inspected and found to be intact. The right periurethral laceration was bleeding. 2-0 Vicryl in running fashion was utilized to repair the laceration. Good hemostasis and approximation were obtained. The left periurethral laceration was very close to going through and through the skin. 3-0 Vicryl was utilized to repair the left periurethral laceration. Two interrupted sutures were utilized to approximate the left periurethral laceration after the running suture had been utilized. EBL is 350cc. The uterus is firm and below the umbilicus. Mother and are resting in stable condition. Sponge, needle and instrument counts were correct.
[2021-07-06] MEDS ORDERED: WITCH HAZEL/GLYCERIN 1 PAD TOP PRN (07:17)
[2021-07-06] MEDS ORDERED: OXYTOCIN/SODIUM CHLORIDE 500 ML IV PRN (07:17)
[2021-07-06] MEDS ORDERED: HYDROCORTISONE 1% CREAM 28 GM TUBE PR PRN (07:17)
[2021-07-06] MEDS ORDERED: ONDANSETRON 4 MG/2 ML VIAL IVP PRN (07:17)
[2021-07-06] MEDS ORDERED: LACTATED RINGERS 1,000 ML IV SCH (08:00)
[2021-07-06] MEDS: ACETAMINOPHEN 500 MG TABLET PO SCH ×2 (09:10→19:41)
[2021-07-06] MEDS: IBUPROFEN 600 MG TABLET PO SCH ×3 (09:10→21:47)
[2021-07-06] MEDS: DOCUSATE SODIUM 100 MG CAPSULE PO SCH (21:53)
[2021-07-07] MEDS: ACETAMINOPHEN 500 MG TABLET PO SCH ×3 (03:40→21:07)
[2021-07-07] MEDS: IBUPROFEN 600 MG TABLET PO SCH ×3 (04:22→17:06)
[2021-07-07 07:27] LABS: BASOPHILS % (AUTO) 0.2 %; EOSINOPHILS # (AUTO) 0.1 10^3/uL (0.0-0.7); EOSINOPHILS % (AUTO) 1.3 %; HCT - HEMATOCRIT 31.2 % (37.0-47.0); HGB - HEMOGLOBIN 10.2 g/dL (12.0-16.0); LYMPHOCYTES # (AUTO) 2.1 10^3/uL (1.5-3.5); LYMPHOCYTES % (AUTO) 21.6 %; MEAN CORPUSCULAR HEMOGLOBIN 30.3 pg (27.0-31.0); MEAN CORPUSCULAR HGB CONC 32.7 g/dL (32.0-36.0); MEAN CORPUSCULAR VOLUME 92.6 fL (81.0-99.0); MEAN PLATELET VOLUME 11.1 fL (7.9-10.8); MONOCYTES # (AUTO) 0.8 10^3/uL (0.0-1.0); MONOCYTES % (AUTO) 8.1 %; NEUTROPHILS # (AUTO) 6.5 10^3/uL (1.5-6.6); PLT - PLATELET COUNT 177 10^3/uL (130-450); RED BLOOD COUNT 3.37 10^6/uL (4.20-5.40); RED CELL DISTRIBUTION WIDTH 13.3 % (12.0-15.0); WHITE BLOOD COUNT 9.7 x10^3/uL (4.8-10.8)
[2021-07-07] MEDS: DOCUSATE SODIUM 100 MG CAPSULE PO SCH ×3 (09:58→21:07)
[2021-07-07] MEDS: NICOTINE 14 MG PATCH TOP SCH (10:45)
--- NOTE | 2021-07-07 11:57 | DISCHARGE SUMMARY ---
"Discharge Summary Admit Date: 07/05/21 Discharge Date: 07/07/21 Discharging Provider: Siva Mcdonough DO Code Status: Attempt Resuscitation Condition at Discharge: Good Discharge Disposition: 01 Home, Self Care Discharge Facility [facility]: [facility] - DIAGNOSES Admission Diagnoses: IUP 39 4/7 in Active labor Discharge Diagnoses with Status of Each Condition: S/P with repair of laceratons, doing good. - HPI History of Present Illness: 35yo at 39 4/7 weeks presented to labor and delivery complaining of contractions. Patient had excellent care at [facility]. - CONSULTS | PROCEDURES Procedures: Epidural Anesthesia with repair of lacerations. - HOSPITAL COURSE Hospital Course: Patient was admitted in early labor and progressed in a normal fashion. Patient obtained an epidural in labor. Patient progressed to complete and labored down. Patient had a over intact perineum with a living female, 8#12oz APGARS of 8/9. Patient had a routine course. Patient is ambulating, urinating and tolerating a regular diet. Patient is breast feeding. - ALLERGIES Allergies/Adverse Reactions: Allergies Allergy/AdvReac Type Severity Reaction Status Date / Time No Known Drug Allergies Allergy Verified 11/21/20 11:16 - MEDICATIONS Home Medications: Ambulatory Orders Medication Instructions Recorded Confirmed Ondansetron Odt [Zofran] 4 mg TL Q6H PRN #30 tablet 11/21/20 - PHYSICAL EXAM AT DISCHARGE General Appearance: positive: No acute distress Respiratory: positive: Breath sounds nml. negative: Wheezes, Rales Cardiovascular: positive: Regular rate & rhythm, No murmur, No gallop Abdomen: positive: Non-tender, Nml bowel sounds, Other (Fundus is firm and below the umbilicus) Skin: positive: Color nml Extremities: positive: No pedal edema. negative: Calf tenderness Reflexes: Knee (L): 2+ - LABS Result Diagrams: 07/07/21 07:03 - QUALITY (Female Hip Fx Only) Was patient sent home on osteoporosis medication?: No - TIME SPENT Time Spent in Discharge (Minutes): 30"
--- NOTE | 2021-07-07 12:06 | PROVIDER PROGRESS NOTE ---
Subjective - Prog Note Date Prog Note Date: 07/07/21 Prog Note Time: 12:05 - Subjective Pt reports feeling: Improved (Patient is sitting in bed breast feeding. Patient stated she would like to go home if the infant can be discharged. Patient is ambulating, urinating, and tolerating a regular diet without difficulty.) Objective - Vital Signs/Intake & Output Vital Signs: Vital Signs x48h Temp Pulse Resp BP 07/07/21 08:30 97.9 F 81 18 116/74 Intake & Output: Intake & Output 07/04/21 07/05/21 07/06/21 07/07/21 23:59 23:59 23:59 23:59 Intake Total 1467.5 Output Total 1950 Balance -482.5 - Objective General Appearance: positive: No acute distress Respiratory: positive: Breath sounds nml. negative: Wheezes, Rales, Rhonchi Cardiovascular: positive: Regular rate & rhythm, No murmur, No gallop Abdomen: positive: Non-tender, Nml bowel sounds, Other (Fundus is firm and below the umbilicus) Skin: positive: Color nml Extremities: positive: No pedal edema. negative: Calf tenderness Neurologic/Psychiatric: positive: Oriented x3, Mood/affect nml Reflexes: Knee (L): 2+ - Lab Results Fish Bones: 07/07/21 07:03 Other Labs: Lab Results x24hrs 07/07/21 Range/Units 07:03 WBC 9.7 (4.8-10.8) x10^3/uL RBC 3.37 L (4.20-5.40) 10^6/uL Hgb 10.2 L (12.0-16.0) g/dL Hct 31.2 L (37.0-47.0) % MCV 92.6 (81.0-99.0) fL MCH 30.3 (27.0-31.0) pg MCHC 32.7 (32.0-36.0) g/dL RDW 13.3 (12.0-15.0) % Plt Count 177 (130-450) 10^3/uL MPV 11.1 H (7.9-10.8) fL Neut # (Auto) 6.5 (1.5-6.6) 10^3/uL Lymph # (Auto) 2.1 (1.5-3.5) 10^3/uL [place] # (Auto) 0.8 (0.0-1.0) 10^3/uL Eos # (Auto) 0.1 (0.0-0.7) 10^3/uL Baso # (Auto) 0.0 (0.0-0.1) 10^3/uL Absolute Nucleated RBC 0.00 x10^3/uL Nucleated RBC % 0.0 /100WBC - Other Results/Comments Other Results/Comments: A- Day #1 without complications. P- Consider discharge this afternoon/evening if infant can be discharged.
--- NOTE | 2021-07-07 13:53 | Discharge Plan ---
Discharge Plan Problem Reviewed?: Yes Disposition: Home, Self Care Condition: Good Diet: Regular Activity Restrictions: Pelvic rest (Pelvic rest.) Shower Restrictions: No Weight Bearing: Full Weight No Smoking: If you smoke, Please STOP! Call for help. Follow-up with: Mayte Pereira MD [Provider Admit Priv/Credential] -
[2021-07-08] MEDS: IBUPROFEN 600 MG TABLET PO SCH ×2 (00:21→10:13)
[2021-07-08] MEDS: ACETAMINOPHEN 500 MG TABLET PO SCH ×2 (04:20→15:41)
[2021-07-08 09:30] VITALS: BP 127/79
[2021-07-08] MEDS: DOCUSATE SODIUM 100 MG CAPSULE PO SCH (10:14)
[2021-07-08] MEDS ORDERED: MEASLES,MUMPS & RUBELLA VACC 0.5 ML VIAL SUBQ ONE (14:19)
== END 2021-07-08 16:10 | disposition home or self-care (01) | DRG 806 ==
LOC: WFO 14:19 → FBP 14:22 → WFO 18:13 → FBP 18:14
PROVIDERS: ADMIT Obstetrics & Gynecology; ATTEND Obstetrics & Gynecology
PROC: 10E0XZZ Delivery of Products of Conception, External Approach (ICD-10-PCS; principal; 2021-07-06)
PROC: 10907ZC Drainage of Amniotic Fluid, Therapeutic from Products of Conception, Via Natural or Artificial Opening (ICD-10-PCS; 2021-07-06)
PROC: 0UQMXZZ Repair Vulva, External Approach (ICD-10-PCS; 2021-07-06)
DX: O71.82 Other specified trauma to perineum and vulva (principal); O98.32 Other infections with a predominantly sexual mode of transmission complicating childbirth; Z37.0 Single live birth; O47.1 False labor at or after 37 completed weeks of gestation; A60.09 Herpesviral infection of other urogenital tract; Z3A.39 39 weeks gestation of pregnancy; Z79.899 Other long term (current) drug therapy
CPT/HCPCS: 36415; 59025; 84112; 85025; 86850; 86900; 86901; 93005; 96372; 99215; 99406; A9270; J7120; 99213; 99214

== ENCOUNTER 2021-09-11 08:17 | Day surgery (SDC) | payer MEDICAID ==
--- NOTE | 2021-09-11 08:05 | HISTORY & PHYSICAL EXAMINATION ---
History and Physical - History and Physical HPI: Patient is a 35-year-old presenting today for scheduled LEEP. She had a Pap smear showing ASC-H with high risk HPV positive although some type 45. We discussed colposcopy versus LEEP, and patient elected for LEEP as it is potentially curative. Patient was started on cephalexin for mastitis, and symptoms have resolved. All other symptoms reviewed and were negative except per HPI. PMH Bipolar disease Anxiety PSH None SH Current everyday smoker. No alcohol use, no drug use Family History Father: Type 2 diabetes Allergies No known drug allergies Medications cephalexin 500 mg 4 times daily for mastitis Physical exam: Temp Pulse Resp BP Pulse Ox 98.2 F 62 15 101/70 97 09/11/21 08:41 09/11/21 08:41 09/11/21 08:41 09/11/21 08:41 09/11/21 08:41 General: Alert, oriented, no acute distress Head: Normal cephalic atraumatic Eyes: PERRLA, extraocular motions intact. Respiratory: Normal rate of respiration. No accessory muscle use, normal respiratory effort. Cardiovascular: Regular rate and rhythm Abdomen: Soft, nontender, nondistended Extremities: Normal range of motion Neuro: Oriented x3. Normal movements Psych: Appropriate mood and affect. Normal judgment and insight Breast: Bilaterally similar without lumps or masses. No erythema or redness. No abnormal discharge. Plan ASC-H 35-year-old -0-1-1 presenting for LEEP 1. ASC-H -Patient counseled on risk and benefits of LEEP versus colposcopy. Patient was counseled on risk of bleeding, pain, future pregnancies with chance of labor. Patient agrees to these risks and wants to proceed with the procedure. Discussed no need to dump breast milk after procedure. 2. 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 Tobacco abuse -Counseled importance of quitting both for patient's overall health and worsening of cervical dysplasia. 4. Lactational mastitis -Normal breast exam. Symptoms resolved. Patient can continue cephalexin at home.
--- NOTE | 2021-09-11 08:23 | ANESTHESIA ---
Pre-Anesthesia VS, & Labs - Diagnosis abnormal PAP smear - Procedure LEEP Height: 5 ft 6 in - NPO >8 hours - Is Patient ?: No - Lab Results Lab results reviewed: Yes Fish Bones: 09/11/21 08:38 Home Medications and Allergies Allergies/Adverse Reactions: Allergies Allergy/AdvReac Type Severity Reaction Status Date / Time No Known Drug Allergies Allergy Verified 11/21/20 11:16 Anes History & Medical History - Anesthetic History Anesthesia Complications: reports: No previous complications Family history of Anesthesia Complications: Denies Family history of Malignant Hyperthermia: Denies - Medical History Cardiovascular: reports: None Pulmonary: reports: None Gastrointestinal: reports: None Urinary: reports: None Musculoskeletal: reports: None Endocrine/Autoimmune: reports: None Skin: reports: None Smoking Status: Former smoker Exam General: Alert, Oriented x3, Cooperative, No acute distress Mouth Openin Fingerbreadth Neck Mobility: Normal Mallampati classification: II Respiratory: Lungs clear, Normal breath sounds, No respiratory distress, No accessory muscle use Cardiovascular: Regular rate, Normal S1, Normal S2, No murmurs Plan Anesthesia Type: General Consent for Procedure(s) Verified and Reviewed: Yes Code Status: Attempt Resuscitation ASA classification: 2-Mild systemic disease Is this case an emergency?: No
[2021-09-11 08:43] LABS: BASOPHILS % (AUTO) 0.3 %; EOSINOPHILS # (AUTO) 0.1 10^3/uL (0.0-0.7); EOSINOPHILS % (AUTO) 1.2 %; HCT - HEMATOCRIT 39.8 % (37.0-47.0); HGB - HEMOGLOBIN 13.2 g/dL (12.0-16.0); LYMPHOCYTES # (AUTO) 2.2 10^3/uL (1.5-3.5); MEAN CORPUSCULAR HEMOGLOBIN 29.7 pg (27.0-31.0); MEAN CORPUSCULAR HGB CONC 33.2 g/dL (32.0-36.0); MEAN CORPUSCULAR VOLUME 89.4 fL (81.0-99.0); MEAN PLATELET VOLUME 9.7 fL (7.9-10.8); MONOCYTES # (AUTO) 0.4 10^3/uL (0.0-1.0); MONOCYTES % (AUTO) 6.6 %; NEUTROPHILS # (AUTO) 3.3 10^3/uL (1.5-6.6); NEUTROPHILS % (AUTO) 55.6 %; PLT - PLATELET COUNT 308 10^3/uL (130-450); RED BLOOD COUNT 4.45 10^6/uL (4.20-5.40); RED CELL DISTRIBUTION WIDTH 11.8 % (12.0-15.0)
[2021-09-11] MEDS ORDERED: LIDOCAINE 2%-EPI 1:100000 20 ML MDV SUBQ ONE ×2 (08:46)
[2021-09-11] MEDS ORDERED: BUPIVACAINE 0.25% PF 30 ML VIAL SUBQ ONE ×2 (08:46)
[2021-09-11 08:56] LABS: HCG UR QUAL NEGATIVE
[2021-09-11] MEDS ORDERED: LACTATED RINGERS 1,000 ML IV ONE ×2 (09:06→10:17)
[2021-09-11] MEDS ORDERED: ePHEDrine 50 MG/ML VIAL IVP PRN (09:26)
[2021-09-11] MEDS ORDERED: NALOXONE 0.4 MG/ML VIAL IVP PRN (09:26)
[2021-09-11] MEDS ORDERED: MORPHINE 2 MG/ML CARPUJECT IVP PRN (09:26)
[2021-09-11] MEDS ORDERED: ATROPINE ABBOJECT 1 MG/10 ML SYRINGE IVP PRN (09:26)
[2021-09-11] MEDS ORDERED: METOCLOPRAMIDE 10 MG/2 ML VIAL IVP PRN (09:26)
[2021-09-11] MEDS ORDERED: ONDANSETRON 4 MG/2 ML VIAL IVP PRN (09:26)
[2021-09-11] MEDS ORDERED: fentaNYL 100 MCG/2 ML VIAL IVP PRN (09:26)
[2021-09-11] MEDS ORDERED: HYDROmorphone 0.5 MG/0.5 ML SYRINGE IVP PRN (09:26)
[2021-09-11] MEDS ORDERED: LACTATED RINGERS 1,000 ML IV SCH (10:00)
[2021-09-11] MEDS ORDERED: FERRIC SUBSULFATE 8 ML SOLUTION (FOR OR) TOP ONE ×2 (10:06→10:23)
[2021-09-11] MEDS ORDERED: POTASSIUM IODIDE/IODINE 14 ML SOLUTION TOP ONE (10:06)
--- NOTE | 2021-09-11 10:21 | OPERATIVE REPORT ---
Operative Report - General Procedure Date: 09/11/21 Planned Procedure: LEEP Pre-Op Diagnosis: ASCH, high risk HPV positive Procedure Performed: LEEP Post Op Diagnosis: Same - Procedure Note Primary Surgeon: Terry Laura MD Anesthesia Provider: Tania Block CRNA Anesthesia Technique: General LMA Pathology: 1. Posterior lip of cervix 2. Anterior lip of cervix 3. 9 o'clock cervix IV Fluids (mL): 500 Estimated Blood Loss (mL): 10 Urine Output (mL): 200 - Other Other Information/Narrative: Patient was placed in the dorsal lithotomy position. She was prepped and draped in usual sterile fashion. Sterile speculum exam hooked to suction was used to visualize the cervix. No abnormalities were noted on exam. A sterile tongue depressor was used to protect the sidewall. Using the loop excisional electrode, the posterior cervix was incised at approximately 3:00 and preliminary expanded to approximately 9:00. This segment was removed. The anterior lip was then grasped again approximately 3:00 where the old scar started, and extended curvilinearly to approximately 9:00. After this segment was removed, a small portion of cervix was noted at 9:00 and was removed as a separate segment. Using the ball electrode, general hemostasis was achieved, however she had some venous oozing and Monsel solution was placed in the oozing spots. After this, patient was hemostatic. All instruments were removed vagina, sponge and instrument counts were correct x2. The patient was taken to the PACU in stable condition.
[2021-09-11 11:07] VITALS: BP 104/67
--- NOTE | 2021-09-11 11:19 | ANESTHESIA POST OP EVALUATION ---
Anesthesia Post Eval - Post Anesthesia Eval Vitals: Last Vital Signs Temp 36.4 C L 09/11/21 11:07 Pulse 65 09/11/21 11:07 Resp 11 L 09/11/21 11:07 BP 104/67 09/11/21 11:07 Pulse Ox 98 09/11/21 11:07 CV Function Including HR & BP: Stable Pain Control: Satisfactory Nausea & Vomiting: Negative Mental Status: Baseline Respiratory Status: Airway Patent Hydration Status: Satisfactory Anesthesia Complications: None
== END 2021-09-11 08:18 | disposition home or self-care (01) ==
LOC: SDS 08:17
PROVIDERS: ATTEND Obstetrics & Gynecology
PROC: 0UBC7ZX Excision of Cervix, Via Natural or Artificial Opening, Diagnostic (ICD-10-PCS; principal; 2021-09-11 09:30)
DX: D06.7 Carcinoma in situ of other parts of cervix (principal); R87.810 Cervical high risk human papillomavirus (HPV) DNA test positive; F31.9 Bipolar disorder, unspecified; F41.9 Anxiety disorder, unspecified; F17.200 Nicotine dependence, unspecified, uncomplicated
CPT/HCPCS: 36415; 57522; 81025; 85025; J7120

== ENCOUNTER 2021-10-29 08:00 | Outpatient (CLI) | payer MEDICAID ==
[2021-10-29 22:35] LABS: BACTERIAL VAGINOSIS DNA POSITIVE (NEGATIVE); CANDIDA GLABRATA DNA NEGATIVE (NEGATIVE); CANDIDA GROUP DNA NEGATIVE (NEGATIVE); CANDIDA KRUSEI DNA NEGATIVE (NEGATIVE); TRICHOMONAS VAGINALIS DNA NEGATIVE (NEGATIVE)
== END 2021-10-29 23:59 ==
LOC: LAB 08:00
PROVIDERS: ATTEND Obstetrics & Gynecology
DX: N89.8 Other specified noninflammatory disorders of vagina (principal)
CPT/HCPCS: 87661; 87801

== ENCOUNTER 2021-11-26 13:26 | Outpatient (CLI) | payer MEDICAID ==
[2021-11-26 16:33] LABS: BACTERIAL VAGINOSIS DNA POSITIVE (NEGATIVE); CANDIDA GLABRATA DNA NEGATIVE (NEGATIVE); CANDIDA GROUP DNA NEGATIVE (NEGATIVE); CANDIDA KRUSEI DNA NEGATIVE (NEGATIVE); TRICHOMONAS VAGINALIS DNA NEGATIVE (NEGATIVE)
[2021-11-26 18:59] LABS: CHLAMYDIA TRACHOMATIS DNA NEGATIVE (NEGATIVE); NEISSERIA GONORRHOEAE DNA NEGATIVE (NEGATIVE); TRICHOMONAS VAGINALIS DNA NEGATIVE (NEGATIVE)
== END 2021-11-26 13:27 | disposition home or self-care (01) ==
LOC: LAB.R 13:26
PROVIDERS: ATTEND Obstetrics & Gynecology
DX: N89.8 Other specified noninflammatory disorders of vagina (principal)
CPT/HCPCS: 87491; 87591; 87661; 87801

== ENCOUNTER 2024-04-12 10:39 | Emergency (ER) | payer OTHER, MEDICAID ==
[2024-04-12 10:50] VITALS: BP 108/54; O2SAT 100
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
[2024-04-12] MEDS: IBUPROFEN 600 MG TABLET PO STA (11:49)
[2024-04-12] MEDS: methocarbamoL 500 MG TABLET PO STA (11:49)
[2024-04-12] MEDS: ACETAMINOPHEN 500 MG TABLET PO STA (11:49)
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
== END 2024-04-12 14:42 | disposition home or self-care (01) ==
LOC: SUPCPDRO 10:39 → ED 10:39
DX: S16.1XXA Strain of muscle, fascia and tendon at neck level, initial encounter (principal); S29.012A Strain of muscle and tendon of back wall of thorax, initial encounter; V43.52XA Car driver injured in collision with other type car in traffic accident, initial encounter; Y92.488 Other paved roadways as the place of occurrence of the external cause
CPT/HCPCS: 72125; 72128; 99283; 99284; A9270

== ENCOUNTER 2024-04-20 08:00 | Outpatient (CLI) | payer MEDICAID, OTHER ==
[2024-04-20 16:04] LABS: BILIRUBIN,URINE NEGATIVE (NEGATIVE); GLUCOSE, URINE (UA) NEGATIVE (NEGATIVE); KETONES,URINE (UA) NEGATIVE (NEGATIVE); LEUKOCYTE ESTERASE, URINE NEGATIVE (NEGATIVE); NITRITE,URINE NEGATIVE (NEGATIVE); OCCULT BLOOD,URINE NEGATIVE (NEGATIVE); PH,URINE 7.5 PH (5.0-7.5); PROTEIN,URINE NEGATIVE (NEGATIVE); UROBILINOGEN,URINE 0.2 (NORMAL) E.U./dL (NORMAL)
[2024-04-20 16:22] LABS: BACTERIA,URINE None Seen /HPF (None Seen); CLARITY,URINE CLEAR (CLEAR); RBC,URINE None Seen /HPF (0-5); SQUAMOUS EPITHELIAL CELL,UR NONE SEEN (<= Few); WBC,URINE 0-3 /HPF (0-5)
== END 2024-04-20 23:59 | disposition home or self-care (01) ==
LOC: LAB.WC 08:00
PROVIDERS: ATTEND Nurse Practitioner
DX: R30.0 Dysuria (principal)
CPT/HCPCS: 81001; 87086